=== PATIENT | male | born 2000 | race Caucasian/White ===

== ENCOUNTER 2021-01-01 11:40 | Emergency (ER) | payer OTHER, MEDICAID ==
[~2021-01-01] VITALS: Ht 188 cm; Wt 68.9 kg
[2021-01-01 12:01] VITALS: BP_SYST 128
--- NOTE | 2021-01-01 12:05 | NUR ---
Patient triaged and placed in waiting room. VSS and patient appears in no acute distress at this time. Accompanied by partner, awaiting available bed, and MD notified of need for MSE.
--- NOTE | 2021-01-01 12:42 | NUR ---
Patient to ER bed 07 to gown for evaluation. Side rails up.
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
--- NOTE | 2021-01-01 13:13 | NUR ---
EDDIE Milan at bedside examining patient.
--- NOTE | 2021-01-01 14:30 | NUR ---
Patient given written and verbal discharge instructions and verbalizes understanding. ER MD discussed with patient the results and treatment provided. Patient in stable condition. ID arm band removed. No Rx given. Patient educated on pain management and to follow up with PMD. Pain Scale 0/10. Opportunity for questions provided and answered. Medication side effect fact sheet provided.
[2021-01-01 14:50] VITALS: BP_SYST 128
== END 2021-01-01 14:30 | disposition home or self-care (01) ==
LOC: SED 11:40
DX: S06.0X0A Concussion without loss of consciousness, initial encounter (principal); S16.1XXA Strain of muscle, fascia and tendon at neck level, initial encounter; S30.810A Abrasion of lower back and pelvis, initial encounter; S30.811A Abrasion of abdominal wall, initial encounter; S29.9XXA Unspecified injury of thorax, initial encounter; V49.49XA Driver injured in collision with other motor vehicles in traffic accident, initial encounter; Y93.89 Activity, other specified; Y92.89 Other specified places as the place of occurrence of the external cause; Y99.8 Other external cause status
CPT/HCPCS: 71045; 99283